=== PATIENT | female | born 1965 | race African-American/Black ===

== ENCOUNTER 2017-10-14 10:56 | Emergency (ER) | payer SELFPAY ==
--- NOTE | 2017-10-14 12:30 | RAD ---
RIGHT HAND 3 VIEWS: HISTORY: A 52-year-old female with a history of pain and injury following blunt trauma to the base of the thum b. FINDINGS: No fracture, dislocation, or other significant osseous abnormality. IMPRESSION: Unremarkable right hand. POS: [facility]
== END 2017-10-14 13:00 | disposition home or self-care (01) ==
LOC: MADERS 10:56
DX: S69.91XA Unspecified injury of right wrist, hand and finger(s), initial encounter (principal); F17.210 Nicotine dependence, cigarettes, uncomplicated; W20.8XXA Other cause of strike by thrown, projected or falling object, initial encounter

== ENCOUNTER 2020-09-13 09:58 | Outpatient (CLI) | payer SELFPAY | END 2020-09-13 09:59 | disposition home or self-care (01) | LOC: MADRAD 09:58 | PROVIDERS: ATTEND Family Medicine | DX: M25.561 Pain in right knee (principal) ==

== ENCOUNTER 2022-05-30 11:26 | Emergency (ER) | payer SELFPAY ==
[~2022-05-30 11:26] MED LIST: Iopamidol 370 76% 100 ML VIAL ONE
[2022-05-30] MEDS ORDERED: Lidocaine Viscous Sol 2% 15 ml UD Cup ONE (12:39)
[2022-05-30] MEDS ORDERED: Dicyclomine 10 MG CAP ONE (12:39)
[2022-05-30] MEDS ORDERED: Mag-Al Plus 1200 MG/1200 MG/120 MG/30 ML UDCUP ONE (12:39)
[2022-05-30 13:15] LABS: ALT (SGPT) 22 U/L (8-55); AST (SGOT) 23 U/L (5-34); Albumin 3.9 g/dL (3.5-5.0); Alkaline Phosphatase 105 U/L (40-110); Anion Gap 19 mmol/L (10-20); BUN (Urea Nitrogen) 20 mg/dL (9.8-20.1); Bilirubin, Total 1.2 mg/dL (0.2-1.2); Calc. Creatinine Clearance 0 mL/min (70-130); Calcium 9.6 mg/dL (7.8-10.44); Carbon Dioxide 25 mmol/L (22-29); Chloride 100 mmol/L (98-107); Estimated GFR 63; Globulin 4.2 g/dL (2.4-3.5); Glucose 138 mg/dL (70-105); Lipase 6 U/L (8-78); Potassium 3.9 mmol/L (3.5-5.1); Protein, Total 8.1 g/dL (6.0-8.3); Sodium 140 mmol/L (136-145)
[2022-05-30] MEDS ORDERED: Famotidine/PF 20 mg/2ml Vial ONE (13:16)
[2022-05-30] MEDS ORDERED: Ketorolac Tromethamine 30 MG/ML VIAL ONE (13:16)
[2022-05-30] MEDS ORDERED: Ondansetron PF 4 MG/2 ML Vial ONE (13:16)
[2022-05-30] MEDS ORDERED: Lactated Ringer's 1,000 ML ONE (13:16)
[2022-05-30 13:24] LABS: Hemoglobin 15.4 g/dL (12.0-16.0); Mean Corpuscular HGB CONC 32.9 g/dL (32.0-36.0); Mean Corpuscular Hemoglobin 28.7 pg (27.0-31.0); Mean Corpuscular Volume 87.4 fl (78.0-98.0); Mean Platelet Volume 8.3 fL (7.4-10.4); Platelet Count 375 10x3/uL (130-400); RBC Distribution Width 11.9 % (11.5-14.5); Red Blood Cell (RBC) Count 5.36 mill/uL (4.20-5.40); White Blood Cell (WBC) Count 10.8 10x3/uL (4.8-10.8)
[2022-05-30 13:27] LABS: Band 10 % (5-11); Eosinophils 1 % (0-10); Lymphocytes 17 % (21-51); MDiff Complete? YES; Monocytes 9 % (0-10); Neutrophil 63 % (42-75); Platelet Morphology Comment Appears Adequate; RBC Morphology Normal
[2022-05-30] MEDS ORDERED: Azithromycin 250 MG TAB ONE (15:29)
== END 2022-05-30 15:35 | disposition home or self-care (01) ==
LOC: MADERS 11:26
DX: J18.9 Pneumonia, unspecified organism (principal); K52.9 Noninfective gastroenteritis and colitis, unspecified; F17.210 Nicotine dependence, cigarettes, uncomplicated
CPT/HCPCS: 71046; 74177; 80053; 83605; 83690; 84484; 85025; 87804; 93005; 94760; 96361; 96374; 96375; J1885; J2405; J7120; Q9967; S0028